=== PATIENT | female | born 1950 | race Caucasian/White ===

== ENCOUNTER 2017-02-28 11:09 | Day surgery (SDC) | payer MEDICARE, BC ==
[2017-02-28] MEDS ORDERED: LIDOCAINE HCL 2% MPF SOL ONE ×2 (12:48→12:54)
[2017-02-28] MEDS ORDERED: MIDAZOLAM 2 MG/2 ML SOL ONE (12:51)
[2017-02-28] MEDS ORDERED: FENTANYL 100MCG/2ML SOL ONE (12:52)
[2017-02-28] MEDS: BUPIVACAINE HCL 0.5% MPF 10 ML SOL ONE ×2 (13:48→13:57)
[2017-02-28] MEDS ORDERED: PROPOFOL 500 MG/50 ML EMU IV ONE (14:07)
[2017-02-28] MEDS ORDERED: KETOROLAC TROMETHAMINE 30 MG/ML SOL ONE (14:07)
[2017-02-28 14:37] VITALS: O2SAT 95
[2017-02-28 14:55] VITALS: BP 144/79; PULSE 74; RESP 18; TEMP 97.5
== END 2017-02-28 15:29 | disposition home or self-care (01) | DRG 74 ==
LOC: SURG 11:09
PROVIDERS: ATTEND Orthopaedic Surgery
DX: G56.03 Carpal tunnel syndrome, bilateral upper limbs (principal); E11.9 Type 2 diabetes mellitus without complications; Z79.4 Long term (current) use of insulin
CPT/HCPCS: 82962; J1885; J2250; J3010; A6402; J2704